=== PATIENT | female | born 1950 | race Caucasian/White ===

== ENCOUNTER 2024-05-09 07:07 | Outpatient (CLI) | payer MEDICARE, BC, SELFPAY ==
--- NOTE | 2024-05-09 07:15 | MR_ITS ---
[address] [address] Phone:?[phone] Fax:?[phone] Referring Physician Information: Melo Ronquillo M.D. [id number] [facility] [address] Phone:?[phone] Fax:?[phone] Patient:Fatoumata Brandt D.O.B:?1950 Sex:?Female Phone:?[phone] [facility] MRN:?[id number] Exam Date:?05/09/2024 EXAM: MRI of the LEFT KNEE, without contrast CLINICAL INFORMATION: Female, 74 years old, with knee pain INDICATION: Evaluate for medial or lateral meniscus tear PRIOR SURGERY: None reported. PLAIN FILMS: Radiograph 05/01/2024. COMPARISONS: No prior MRIs available. TECHNICAL INFORMATION: Using a 1.5T MR scanner and a localizing surface coil: sagittals: PD, PDFS coronals: PD, T2FS axials: PD, PDFS SEDATION: None CONTRAST: None FINDINGS: Knee joint: Effusion: Small sized left knee effusion. Popliteal cyst: Small residual popliteal cyst, with evidence of rupture and moderate fluid along the medial head of the gastrocnemius. Loose bodies: None. Subcutaneous and extra-articular soft tissues: Mild prepatellar subcutaneous soft tissue edema and skin thickening. Ligaments: ACL: Intact ACL anteromedial and posterolateral bundles, without sprain or tear. PCL: Intact PCL, without acute or chronic injury. MCL: Intact MCL superficial and deep layers, without injury. LCL: Intact LCL, without injury. Posterolateral corner: No posterolateral corner soft tissue injury. Popliteus, biceps femoris, iliotibial band, popliteofibular ligament and lateral gastrocnemius are intact. Posteromedial corner: No posteromedial corner soft tissue injury. Semimembranosus, pes anserine tendons and posterior oblique ligament are without injury, tendinopathy or bursitis. Extensor mechanism: Patellar tendon: Intact, without tendinopathy. Quadriceps tendon: Intact, without tendinopathy. Retinacula: Medial and lateral retinacula are intact. Fat pads: Unremarkable infrapatellar Hoffa's, quadriceps and prefemoral fat pads. Medial compartment: Medial meniscus: There is partial thickness radial tearing of the posterior horn of the medial meniscus measuring approximately 8 mm in length extending from the apical free edge tear of the middle third (axial series 3 image 20, and coronal series 7 image 20). There is no well-defined appearance of extension through the meniscal periphery. The posterior root of the meniscus is intact. There is poorly defined vertical oblique tearing involving the peripheral third at the level of the body measuring 1.0 cm in length (coronal series 7 image 17). 3 mm peripheral meniscal extrusion at the level of the body. Medial femoral condyle: No chondromalacia or osteochondral abnormality. Medial tibial plateau: No chondromalacia or osteochondral abnormality. Lateral compartment: Lateral meniscus: No articular surface, meniscosynovial junction or root tear. No displacement, extrusion or parameniscal cyst. Lateral femoral condyle: No chondromalacia or osteochondral abnormality. Lateral tibial plateau: No chondromalacia or osteochondral abnormality. Patellofemoral joint: Patella: Grade III/IV chondromalacia along the mid to superior medial patellar facet measuring approximately 1.2 x 1.9 cm with mild underlying cystic change and marrow edema. Trochlea: Grade III/IV chondromalacia of the central trochlea measuring 1.9 x 1.9 cm. Proximal tibiofibular joint: Unremarkable, without evidence of ligament sprain injury, joint effusion or adjacent marrow edema. Bones: No stress/occult fractures or other marrow edema/pathology. IMPRESSION: 1. Partial-thickness radial tearing of the posterior horn of the medial meniscus measuring 8 mm in length, without extension through the meniscal periphery. Additional vertical oblique tearing involving the inferior articular surface at the periphery of the body segment 1.0 cm in length. 3 mm peripheral meniscal extrusion. 2. 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 3. Small residual popliteal cyst with evidence of rupture and moderate fluid along the medial head of the gastrocnemius. 4. No lateral meniscus tear. Lateral compartment articular cartilage is intact. 5. No cruciate or collateral ligament sprain/tear. 6. Small knee joint effusion. KME Electronically signed on 05/09/2024 7:47:00 PM by Nina Lopes M.D.
== END 2024-05-09 07:08 | disposition home or self-care (01) ==
LOC: MRI 07:09
PROVIDERS: PCP Internal Medicine; Visit Provider Orthopaedic Surgery Sports Medicine
DX: M25.562 Pain in left knee (principal); S83.222A Peripheral tear of medial meniscus, current injury, left knee, initial encounter; M17.12 Unilateral primary osteoarthritis, left knee; M22.42 Chondromalacia patellae, left knee; M25.462 Effusion, left knee; S86.812A Strain of other muscle(s) and tendon(s) at lower leg level, left leg, initial encounter
CPT/HCPCS: 73721